=== PATIENT | female | born 1990 | race Caucasian/White ===

== ENCOUNTER 2018-11-23 10:59 | Observation (INO) | payer OTHER ==
[2018-11-23 12:50] LABS: Amphetamine,Urine NEGATIVE (NEGATIVE); Barbiturate,Urine NEGATIVE (NEGATIVE); Benzodiazepine,Urine NEGATIVE (NEGATIVE); Cocaine,Urine NEGATIVE (NEGATIVE); Methadone,Urine NEGATIVE (NEGATIVE); Opiate,Urine NEGATIVE (NEGATIVE); PCP,Urine NEGATIVE (NEGATIVE); THC,Urine POSITIVE (NEGATIVE)
[2018-11-23 14:35] VITALS: BP 145/81; PULSE 85
--- NOTE | 2018-11-23 15:06 | XRAY ---
Exam: OB biophysical profile without nonstress test from 11/23/2018. Comparison: OB ultrasound less than 14 weeks from 06/17/2018. Indication: well-being, maternal hypertension. Findings: The fetus scored 0 out of 2 points for breathing movements (less than 30 seconds of sustained breathing movements in 30 minutes of observation). The fetus scored 2 points out of 2 points for 3 or more gross body movements in 30 minutes of observation. Simultaneous limb and trunk movements are counted as a single movement. The fetus scored 2 points out of 2 points for at least one episode of motion of a limb from a position of flexion to extension and a rapid return to flexion. The fetus scored 2 points out of 2 points for qualitative amniotic fluid volume (pocket of amniotic fluid measuring at least 1 cm in perpendicular planes). The heart rate measured 131 bpm. Impression: 1. Total OB biophysical profile score is 6 points out of a maximum of 8 points. See above.
== END 2018-11-23 14:00 | disposition home or self-care (01) ==
LOC: OB 10:59
PROVIDERS: ADMIT Family Medicine; ATTEND Family Medicine
DX: O16.3 Unspecified maternal hypertension, third trimester (principal); Z3A.31 31 weeks gestation of pregnancy
CPT/HCPCS: 59025; 76819; 80307; G0378

== ENCOUNTER 2018-11-30 10:04 | Observation (INO) | payer OTHER ==
--- NOTE | 2018-11-30 11:18 | XRAY ---
Indication: Gestational hypertension. Ultrasound biophysical profile study was performed. Comparison: November 23, 2018. Again there is a single viable intrauterine with heart rate 139 BPM. Four-quadrant NANY is 20.6 cm. 2 points given for breathing, movements, tone, and qualitative amniotic fluid volume. Impression: Total biophysical profile score is now 8 out of 8.
[2018-11-30 11:53] VITALS: BP 137/68; PULSE 80
== END 2018-11-30 11:38 | disposition home or self-care (01) ==
LOC: OB 10:04 → UNDOADMOB 10:04 → UNDODISOB 11:38
PROVIDERS: ADMIT Family Medicine; ATTEND Family Medicine
DX: O13.3 Gestational [pregnancy-induced] hypertension without significant proteinuria, third trimester (principal); Z3A.32 32 weeks gestation of pregnancy
CPT/HCPCS: 59025; 76819; G0378

== ENCOUNTER 2019-01-17 17:12 | Emergency (ER) | payer OTHER ==
--- NOTE | 2019-01-17 18:04 | ERPHSYRPT ---
- History of Present Illness Time Seen by Provider: 01/17/19 17:50 Historian: patient Exam Limitations: no limitations Patient Subjective Stated Complaint: pt here lower abd pain since yesterday, vomited yesterday none today, fever 102.3 today, fever not treated. pt is 2 weeks psot ,normal vaginal delivery . dr contreras is her facility service associate Triage Nursing Assessment: pt alert, walked in ,resp easy, skin w/d/p. pt guarding abd, moaning occ, abd soft with bs, ,moves all ext well, pt still having vaginal bleeding states he jis going through 3 pads a day, no clots Physician History: Patient is 2 weeks of a spontaneous vaginal delivery. Patient is a . Patient had no complications with or delivery. Patient was delivered in [place], [place] by Dr Contreras. Patient did not require antibiotics during delivery or post- and was Group B strep negative per her history. Patient was not seen by her PHOTO TECHNOLOGIST for her new onset RLQ to generalized abdominal pain over the past day of her symptoms. Patient states she had a fever of 102.6 in the morning of 01/17/2019. Timing/Duration: yesterday Activities at Onset: none Abdominal Pain Onset Location: RLQ (yesterday; ), generalized abdomen (today her pain is generalized) Pain Radiation: periumbilical Severity of Pain-Max: moderate Severity of Pain-Current: moderate Modifying Factors: Worsens With: movement, palpation Associated Symptoms: No back, No chest pain, No diaphoresis, No diarrhea, No fever/chills, No fatigue, No headache, No heartburn, No loss of appetite, No nausea, No neck pain, No rash, No shortness of breath, No syncope, No vomiting, No weakness Previous symptoms: no prior history, no recent treatment Allergies/Adverse Reactions: No Known Drug Allergies Allergy (Verified 01/17/19 17:41) Home Medications: Iron 65 mg PO DAILY 11/23/18 [History] Nifedipine Xl 30 mg [Adalat CC 30 MG TABLET] 60 mg PO DAILY 11/23/18 [ History] Vits W-Ca,Fe,FA(<1Mg) [] 1 each PO DAILY 11/23/18 [History] Hx Tetanus, Diphtheria Vaccination/Date Given: Yes (2009) Hx Influenza Vaccination/Date Given: Yes Hx Pneumococcal Vaccination/Date Given: No Immunizations Up to Date: Yes - Review of Systems Constitutional: No Fever, No Chills, No Fatigue Eyes: No Eye Pain, No Vision Changes Ears, Nose, & Throat: No Mouth Swelling, No Throat Pain, No Throat Swelling, No Painful Swallowing Respiratory: No Cough, No Dyspnea, No Dyspnea on Exertion (HAYDEN) Cardiac: No Chest Pain, No Edema, No Palpitations, No Syncope Abdominal/Gastrointestinal: Abdominal Pain, No Nausea, No Vomiting, No Melena Genitourinary Symptoms: Vaginal Bleeding (small amounts; told nursing still absorbing three pads a day), No Dysuria, No Frequency, No Hematuria, No Flank Pain Musculoskeletal: No Back Pain, No Neck Pain, No Deformity, No Myalgias Skin: No Pruritis, No Rash Neurological: No Dizziness, No Focal Weakness, No Parasthesia Psychological: No Anxiety Endocrine: No Polyuria, No Polydipsia, No Excessive Sweating Hematologic/Lymphatic: No Easy Bleeding, No Easy Bruising All Other Systems: Reviewed and Negative - Past Medical History Pertinent Past Medical History: Yes Neurological History: No Pertinent History ENT History: No Pertinent History Cardiac History: Hypertension Respiratory History: No Pertinent History Endocrine Medical History: No Pertinent History Musculoskeletal History: No Pertinent History GI Medical History: No Pertinent History History: No Pertinent History Psycho-Social History: Bipolar Female Reproductive Disorders: No Pertinent History Other Medical History: Information given by significant other. - Past Surgical History Past Surgical History: No Neuro Surgical History: No Pertinent History Cardiac: No Pertinent History Respiratory: No Pertinent History Gastrointestinal: No Pertinent History Genitourinary: No Pertinent History Musculoskeletal: No Pertinent History Female Surgical History: No Pertinent History Other Surgical History: Information given by significant other - Social History Smoking Status: Never smoker How long have you smoked: 4 YRS. Exposure to second hand smoke: No Drug Use: none Patient Lives Alone: No - Female History Hx Last Menstrual Period: apr 18 2018 Hx Now: No - Nursing Vital Signs Nursing Vital Signs: Initial Vital Signs Temperature 98.6 F 01/17/19 17:31 Pulse Rate 96 H 01/17/19 17:31 Respiratory Rate 16 01/17/19 17:31 Blood Pressure 147/99 01/17/19 17:31 O2 Sat by Pulse Oximetry 99 01/17/19 17:31 Pain Scale Pain Intensity 7 - Physical Exam General Appearance: no apparent distress, alert Eye Exam: PERRL/EOMI, eyes nml inspection, No scleral icterus Ears, Nose, Throat Exam: normal ENT inspection, pharynx normal, moist mucous membranes, No dry mucous membranes Neck Exam: normal inspection, non-tender, supple, No full range of motion, No meningismus Respiratory Exam: normal breath sounds, lungs clear, airway intact, No chest tenderness, No respiratory distress, No accessory muscle use, No crackles/rales , No rhonchi, No wheezing Cardiovascular Exam: regular rate/rhythm, normal heart sounds, normal peripheral pulses, capillary refill <2 sec, No murmur Gastrointestinal/Abdomen Exam: soft, normal bowel sounds, tenderness, No mass, No guarding, No ecchymosis, No rebound Back Exam: normal inspection, normal range of motion, No CVA tenderness, No vertebral tenderness, No rash Extremity Exam: normal inspection, normal range of motion, pelvis stable, No calf tenderness, No hanh's sign Neurologic Exam: alert, oriented x 3, cooperative, wood boatbuilder II-XII nml as tested, normal mood/affect, sensation nml, No motor deficits Skin Exam: normal color, warm, dry, No rash, No petechiae, No jaundice, No cyanosis SpO2 Interpretation: normal SpO2: 99 O2 Delivery: Room Air Ordered Tests: Active Orders 24 hr Category Date Time Status IV Insertion STAT Care 01/17/19 17:58 Active NPO (ED) STAT Care 01/17/19 17:58 Active AMYLASE Stat Lab 01/17/19 18:10 Completed CBC W DIFF Stat Lab 01/17/19 18:10 Completed CMP Stat Lab 01/17/19 18:10 Completed CULTURE,URINE Stat Lab 01/17/19 18:22 Received LIPASE Stat Lab 01/17/19 18:10 Completed Lactic Acid Stat Lab 01/17/19 17:58 Completed PROTIME WITH INR Stat Lab 01/17/19 18:10 Completed PTT Stat Lab 01/17/19 18:10 Completed UA W/RFX UR CULTURE Stat Lab 01/17/19 18:22 Completed Medication Summary Discontinued Medications Generic Name Dose Route Start Last Admin Trade Name Freq PRN Reason Stop Dose Admin Cephalexin HCl 500 mg 01/17/19 21:46 01/17/19 22:05 Keflex 500 Mg PO 01/17/19 21:47 500 mg STAT ONE Administration Cephalexin HCl Confirm 01/17/19 22:04 Keflex 500 Mg Administered 01/17/19 22:05 Dose 500 mg .ROUTE .STK-MED ONE Diphenhydramine HCl 25 mg 01/17/19 17:58 01/17/19 18:32 Benadryl 50 Mg/Ml IV 01/17/19 17:59 25 mg STAT ONE Administration Diphenhydramine HCl Confirm 01/17/19 18:25 Benadryl 50 Mg/Ml Administered 01/17/19 18:26 Dose 50 mg .ROUTE .STK-MED ONE Famotidine 20 mg 01/17/19 17:58 01/17/19 18:30 Pepcid 20 Mg Vial IV 01/17/19 17:59 20 mg STAT ONE Administration Famotidine Confirm 01/17/19 18:25 Pepcid 20 Mg Vial Administered 01/17/19 18:26 Dose 20 mg IV .STK-MED ONE Sodium Chloride 1,000 mls @ 999 mls/hr 01/17/19 17:58 01/17/19 18:27 Sodium Chloride 0.9% 1000 Ml IV 01/17/19 18:58 999 mls/hr .Q1H1M STA Administration Sodium Chloride Confirm 01/17/19 18:26 Sodium Chloride 0.9% 1000 Ml Administered 01/17/19 18:27 Dose 1,000 mls @ ud .ROUTE .STK-MED ONE Ketorolac Tromethamine 30 mg 01/17/19 21:49 01/17/19 22:06 Toradol 30 Mg Injection IV 01/17/19 21:50 30 mg STAT ONE Administration Ketorolac Tromethamine Confirm 01/17/19 22:03 Toradol 30 Mg Injection Administered 01/17/19 22:04 Dose 30 mg .ROUTE .STK-MED ONE Morphine Sulfate 4 mg 01/17/19 17:58 01/17/19 18:35 Morphine Sulfate 4 Mg Inj IV 01/17/19 17:59 4 mg STAT ONE Administration Morphine Sulfate Confirm 01/17/19 18:26 Morphine Sulfate 4 Mg Inj Administered 01/17/19 18:27 Dose 4 mg .ROUTE .STK-MED ONE Lab/Rad Data: Laboratory Result Diagrams 01/17/19 18:10 01/17/19 18:10 Laboratory Results 01/17/19 01/17/19 01/17/19 Range/Units 18:22 18:10 18:10 WBC (4.0-10.5) K/mm3 RBC (4.1-5.4) M/mm3 Hgb (12.0-16.0) gm/dl Hct (35-47) % MCV (78-100) fl MCH (26-32) pg MCHC (32-36) g/dl RDW (11.5-14.0) % Plt Count (150-450) K/mm3 MPV (6-9.5) fl Gran % (36.0-66.0) % Eos # (Auto) (0-0.5) Absolute Lymphs (auto) (1.0-4.6) Absolute Monos (auto) (0.0-1.3) Lymphocytes % (24.0-44.0) % Monocytes % (0.0-12.0) % Eosinophils % (0.00-5.0) % Basophils % (0.0-0.4) % Absolute Granulocytes (1.4-6.9) Basophils # (0-0.4) PT 17.0 H (9.95-12.35) SECONDS INR 1.49 (0.8-3.0) APTT 33.8 (25.3-37.0) SECONDS Sodium 141 (137-145) mmol/L Potassium 4.3 (3.5-5.1) mmol/L Chloride 104 (98-107) mmol/L Carbon Dioxide 27 (22-30) mmol/L Anion Gap 13.9 (5-15) MEQ/L BUN 20 H (7-17) mg/dL Creatinine 1.00 (0.52-1.04) mg/dL Estimated GFR > 60.0 ML/MIN Glucose 97 (74-106) mg/dL Lactic Acid (0.4-2.0) Calcium 9.4 (8.4-10.2) mg/dL Total Bilirubin 0.80 (0.2-1.3) mg/dL AST 16 (14-36) U/L ALT 18 (0-35) U/L Alkaline Phosphatase 94 (38-126) U/L Serum Total Protein 7.6 (6.3-8.2) g/dL Albumin 3.7 (3.5-5.0) g/dL Amylase 41 (30-110) U/L Lipase 26 (23-300) U/L Urine Color FRANCISCO (YELLOW) Urine Appearance CLOUDY (CLEAR) Urine pH 5.0 (5-6) Ur Specific [place] 1.028 (1.005-1.025) Urine Protein 100 (Negative) Urine Ketones NEGATIVE (NEGATIVE) Urine Blood LARGE (0-5) Remy/ul Urine Nitrite NEGATIVE (NEGATIVE) Urine Bilirubin NEGATIVE (NEGATIVE) Urine Urobilinogen 2 (0-1) mg/dL Ur Leukocyte Esterase LARGE (NEGATIVE) Urine WBC (Auto) >100 (0-5) /HPF Urine RBC (Auto) 3-5 (0-2) /HPF U Epithel Cells (Auto) RARE (FEW) /HPF Urine Bacteria (Auto) NONE (NEGATIVE) /HPF Urine Mucus (Auto) SLIGHT (NEGATIVE) /HPF Urine Culture Reflexed YES (NO) Urine Glucose NEGATIVE (NEGATIVE) mg/dL 01/17/19 01/17/19 Range/Units 18:10 17:58 WBC 14.4 H (4.0-10.5) K/mm3 RBC 4.01 L (4.1-5.4) M/mm3 Hgb 12.1 (12.0-16.0) gm/dl Hct 37.8 (35-47) % MCV 94.3 (78-100) fl MCH 30.1 (26-32) pg MCHC 32.0 (32-36) g/dl RDW 12.8 (11.5-14.0) % Plt Count 340 (150-450) K/mm3 MPV 9.7 H (6-9.5) fl Gran % 84.0 H (36.0-66.0) % Eos # (Auto) 0.10 (0-0.5) Absolute Lymphs (auto) 1.47 (1.0-4.6) Absolute Monos (auto) 0.70 (0.0-1.3) Lymphocytes % 10.2 L (24.0-44.0) % Monocytes % 4.9 (0.0-12.0) % Eosinophils % 0.7 (0.00-5.0) % Basophils % 0.2 (0.0-0.4) % Absolute Granulocytes 12.12 H (1.4-6.9) Basophils # 0.03 (0-0.4) PT (9.95-12.35) SECONDS INR (0.8-3.0) APTT (25.3-37.0) SECONDS Sodium (137-145) mmol/L Potassium (3.5-5.1) mmol/L Chloride (98-107) mmol/L Carbon Dioxide (22-30) mmol/L Anion Gap (5-15) MEQ/L BUN (7-17) mg/dL Creatinine (0.52-1.04) mg/dL Estimated GFR ML/MIN Glucose (74-106) mg/dL Lactic Acid 1.0 (0.4-2.0) Calcium (8.4-10.2) mg/dL Total Bilirubin (0.2-1.3) mg/dL AST (14-36) U/L ALT (0-35) U/L Alkaline Phosphatase (38-126) U/L Serum Total Protein (6.3-8.2) g/dL Albumin (3.5-5.0) g/dL Amylase (30-110) U/L Lipase (23-300) U/L Urine Color (YELLOW) Urine Appearance (CLEAR) Urine pH (5-6) Ur Specific [place] (1.005-1.025) Urine Protein (Negative) Urine Ketones (NEGATIVE) Urine Blood (0-5) Remy/ul Urine Nitrite (NEGATIVE) Urine Bilirubin (NEGATIVE) Urine Urobilinogen (0-1) mg/dL Ur Leukocyte Esterase (NEGATIVE) Urine WBC (Auto) (0-5) /HPF Urine RBC (Auto) (0-2) /HPF U Epithel Cells (Auto) (FEW) /HPF Urine Bacteria (Auto) (NEGATIVE) /HPF Urine Mucus (Auto) (NEGATIVE) /HPF Urine Culture Reflexed (NO) Urine Glucose (NEGATIVE) mg/dL - Progress Progress: improved, re-examined Progress Note: 01/17/19 21:52 Patient still has generalized abdominal pain or repeat examination. Toradol 30mg IV times one will be given. 01/17/19 23:06 Pain resolved after IV Toradol. abdomen soft and nontender on repeat examination no CVA tenderness bilaterally. Patient states she's had hypertension issues since age 16, but did not have preeclampsia with his past delivery and the last 4 weeks of her her blood pressure was normal. Patient states she was on 2 blood pressure medications through her . Discussed with Dr.: Other (@21:38, spoker with Dr Meehan, PHOTO TECHNOLOGIST, covering for Dr Contreras. Dr Meehan states patient does not require any immediate imaging or inpatient evaluation and we both feel patient does not have pre- eclampsia at this time. Dr Meehan recommended patient start Motrin for pain control and we decided on Keflex for start of possible UTI ) Counseled pt/family regarding: lab results, diagnosis, need for follow-up - Departure Departure Disposition: Home Clinical Impression: Generalized abdominal pain, Lower urinary tract infection, acute, Essential hypertension Condition: Good Critical Care Time: No Referrals: SUSAN ARELLANO MD [Primary Care Provider] - Instructions: Acute Abdomen (Belly Pain), Adult (DC), Urinary Tract Infection, Adult (DC), High Blood Pressure (DC) Additional Instructions: No specific reason was found on today's evaluation for your abdominal pain. We will start youon antibiotics for a lower urinary tract infection, and it is important to follow up the urine culture with your PHOTO TECHNOLOGIST, Dr. Contreras in the next 2 days. Follow-up with Dr Contreras in the morning of 01/18/2019. Return immediately back to the emergency room if any new fever, worsening abdominal pain, localized abdominal pain, new back pain, new vomiting, or any other concerning signs or symptoms that were not present at today's emergency room visit for immediate reevaluation in the emergency department. Prescriptions: Ibuprofen 600 mg PO Q6H PRN PRN #20 tablet PRN Reason: Pain Cephalexin Mh 500 mg [Keflex 500 mg] 500 mg PO TID #15 capsule
[2019-01-17 18:21] LABS: Absolute Neutrophil Ct (ANC) 12.12 (1.4-6.9); BASOPHIL % 0.2 % (0.0-0.4); Basophil (Absolute #) 0.03 (0-0.4); Eosinophil % 0.7 % (0.00-5.0); Hematocrit 37.8 % (35-47); Hemoglobin 12.1 gm/dl (12.0-16.0); Lymphocyte (Absolute #) 1.47 (1.0-4.6); Lymphocytes % 10.2 % (24.0-44.0); Mean Cell Volume 94.3 fl (78-100); Mean Platelet Volume 9.7 fl (6-9.5); Monocytes % 4.9 % (0.0-12.0); Platelet Count 340 K/mm3 (150-450); Red Blood Count 4.01 M/mm3 (4.1-5.4); Red Cell Distribution Width 12.8 % (11.5-14.0); White Blood Count 14.4 K/mm3 (4.0-10.5)
[2019-01-17 18:24] LABS: Mean Corpuscular Hemoglobin 30.1 pg (26-32)
[2019-01-17] MEDS ORDERED: Pepcid 20 MG VIAL IV ONE (18:25)
[2019-01-17] MEDS ORDERED: BENADRYL 50 MG/ML ONE (18:25)
[2019-01-17] MEDS ORDERED: MORPHINE SULFATE 4 MG INJ ONE (18:26)
[2019-01-17] MEDS ORDERED: Sodium Chloride 0.9% 1000 ML 1,000 ML ONE (18:26)
[2019-01-17] MEDS: Sodium Chloride 0.9% 1000 ML 1,000 ML IV STA (18:27)
[2019-01-17 18:28] LABS: INR 1.49 (0.8-3.0)
[2019-01-17] MEDS: Pepcid 20 MG VIAL IV ONE (18:30)
[2019-01-17 18:31] LABS: PTT 33.8 SECONDS (25.3-37.0)
[2019-01-17] MEDS: BENADRYL 50 MG/ML IV ONE (18:32)
[2019-01-17 18:34] LABS: ALBUMIN 3.7 g/dL (3.5-5.0); ALKALINE PHOSPHATASE 94 U/L (38-126); AMYLASE 41 U/L (30-110); ANION GAP 13.9 MEQ/L (5-15); BLOOD UREA NITROGEN 20 mg/dL (7-17); CHLORIDE 104 mmol/L (98-107); Calcium 9.4 mg/dL (8.4-10.2); Carbon Dioxide 27 mmol/L (22-30); Glucose 97 mg/dL (74-106); LIPASE 26 U/L (23-300); Potassium 4.3 mmol/L (3.5-5.1); SGOT/AST 16 U/L (14-36); SGPT/ALT 18 U/L (0-35); SODIUM 141 mmol/L (137-145); Total Protein 7.6 g/dL (6.3-8.2)
[2019-01-17] MEDS: MORPHINE SULFATE 4 MG INJ IV ONE (18:35)
[2019-01-17 18:53] LABS: Appearance CLOUDY (CLEAR); Bilirubin NEGATIVE (NEGATIVE); Blood LARGE Ery/ul (0-5); Epithelial Cells RARE /HPF (FEW); Glucose NEGATIVE (NEGATIVE); Ketones NEGATIVE (NEGATIVE); Leukocyte Esterase LARGE (NEGATIVE); Mucus SLIGHT /HPF (NEGATIVE); Nitrite NEGATIVE (NEGATIVE); Protein,Urine Dip 100 (Negative); Specific Gravity 1.028 (1.005-1.025); Urobilinogen 2 mg/dL (0-1); WBC >100 /HPF (0-5)
[2019-01-17] MEDS ORDERED: TORAdol 30 mg Injection ONE (22:03)
[2019-01-17] MEDS ORDERED: KEFLEX 500 MG ONE (22:04)
[2019-01-17] MEDS: KEFLEX 500 MG PO ONE (22:05)
[2019-01-17] MEDS: TORAdol 30 mg Injection IV ONE (22:06)
[2019-01-17 23:20] VITALS: BP 128/76; PULSE 79; O2SAT 98
== END 2019-01-17 23:22 | disposition home or self-care (01) ==
LOC: ED 17:12
DX: R10.84 Generalized abdominal pain (principal); R10.33 Periumbilical pain; O86.20 Urinary tract infection following delivery, unspecified; I10 Essential (primary) hypertension
CPT/HCPCS: 36000; 36415; 80053; 81001; 82150; 83605; 83690; 85025; 85610; 85730; 87086; 96374; 96375; 99284; J1200; J1885; J2270; A9270-GY

== ENCOUNTER 2021-08-18 09:25 | Inpatient (IN) | payer MEDICAID ==
[2021-08-18] MEDS ORDERED: XYLOCAINE 1% HCL 20 ML MDV IJ PRN (17:58)
[2021-08-18] MEDS ORDERED: Cervidil 10 MG VAG SCH (18:00)
[2021-08-18] MEDS ORDERED: BRETHINE 1 MG/ML SQ PRN (18:00)
[2021-08-18 18:55] LABS: Absolute Neutrophil Ct (ANC) 5.94 x10^3/uL (1.4-6.9); Basophil (Absolute #) 0.06 x10^3/uL (0-0.4); Eosinophil % 1.8 % (0.00-5.0); Eosinophil (Absolute #) 0.17 x10^3/uL (0-0.5); Hematocrit 37.6 % (35-47); Hemoglobin 12.5 g/dL (12.0-16.0); Lymphocyte (Absolute #) 2.39 x10^3/uL (1.0-4.6); Lymphocytes % 25.5 % (24.0-44.0); Mean Cell Volume 93.1 fL (78-100); Mean Corpuscular Hemoglobin 30.9 pg (26-32); Mean Corpuscular Hgb Concent. 33.2 g/dL (32-36); Mean Platelet Volume 10.4 fL (7.5-11.0); Monocyte (Absolute #) 0.73 x10^3/uL (0.0-1.3); Monocytes % 7.8 % (0.0-12.0); Neutrophil % 63.6 % (36.0-66.0); Platelet Count 194 x10^3/uL (150-450); Red Blood Count 4.04 x10^6/uL (4.1-5.4); White Blood Count 9.4 x10^3/uL (4.0-10.5)
[2021-08-18 19:23] LABS: Amphetamine,Urine POSITIVE (NEGATIVE); Barbiturate,Urine NEGATIVE (NEGATIVE); Benzodiazepine,Urine NEGATIVE (NEGATIVE); Cocaine,Urine NEGATIVE (NEGATIVE); Methadone,Urine NEGATIVE (NEGATIVE); Opiate,Urine NEGATIVE (NEGATIVE); PCP,Urine NEGATIVE (NEGATIVE); THC,Urine POSITIVE (NEGATIVE)
[2021-08-18 19:46] LABS: ABO TYPING A; Antibody Screen NEGATIVE (NEGATIVE); RH TYPING POSITIVE
[2021-08-19] MEDS ORDERED: TRANDATE 20 MG/4 ML SYRINGE IV ONE (02:39)
[2021-08-19] MEDS ORDERED: STADOL 2 MG IV ONE ×2 (02:42→07:00)
[2021-08-19] MEDS ORDERED: Ephedrine Sulfate 50 MG/ML IV PRN (07:00)
[2021-08-19] MEDS ORDERED: Lactated Ringers 1,000 ML IV ONE (07:00)
[2021-08-19] MEDS ORDERED: FENTANYL 2 MCG-BUPIV 0.125%-NS 250 ML Epidur 250 ML EPIDURAL SCH (07:05)
[2021-08-19] MEDS ORDERED: PITOCIN 30 UNITS/ LR 500 ML 30 UNITS/500 ML PLAST..BAG IV SCH (08:00)
[2021-08-19] MEDS: Trandate 100 MG PO SCH ×2 (08:20→21:46)
[2021-08-19] MEDS: Lactated Ringers 1,000 ML IV SCH (08:23)
[2021-08-19] MEDS ORDERED: Xylocaine-Mpf 2% 5 Ml Vial ONE (13:57)
[2021-08-19] MEDS ORDERED: TUCKS TP PRN (15:03)
[2021-08-19] MEDS ORDERED: LANSINOH 40 GM TOP PRN (15:03)
[2021-08-19] MEDS ORDERED: Dermoplast Spray TP PRN (15:03)
[2021-08-19] MEDS: MOTRIN 400 MG PO PRN ×2 (16:30→21:45)
[2021-08-19] MEDS: TYLENOL EXTRA STRENGTH 500 MG PO PRN (20:38)
[2021-08-19] MEDS: Docusate Sodium 100 MG PO SCH (21:45)
[2021-08-20] MEDS: TYLENOL EXTRA STRENGTH 500 MG PO PRN ×2 (04:54→08:08)
[2021-08-20 05:10] LABS: Absolute Neutrophil Ct (ANC) 6.64 x10^3/uL (1.4-6.9); Basophil (Absolute #) 0.04 x10^3/uL (0-0.4); Eosinophil % 1.7 % (0.00-5.0); Eosinophil (Absolute #) 0.18 x10^3/uL (0-0.5); Hemoglobin 11.9 g/dL (12.0-16.0); Lymphocyte (Absolute #) 2.64 x10^3/uL (1.0-4.6); Lymphocytes % 25.6 % (24.0-44.0); Mean Cell Volume 92.5 fL (78-100); Mean Corpuscular Hemoglobin 30.6 pg (26-32); Mean Corpuscular Hgb Concent. 33.1 g/dL (32-36); Mean Platelet Volume 10.4 fL (7.5-11.0); Monocyte (Absolute #) 0.76 x10^3/uL (0.0-1.3); Monocytes % 7.4 % (0.0-12.0); Neutrophil % 64.3 % (36.0-66.0); Platelet Count 183 x10^3/uL (150-450); Red Blood Count 3.89 x10^6/uL (4.1-5.4); Red Cell Distribution Width 13.2 % (11.5-14.0); White Blood Count 10.3 x10^3/uL (4.0-10.5)
[2021-08-20] MEDS: Trandate 100 MG PO SCH ×2 (05:48→21:56)
[2021-08-20] MEDS ORDERED: Adacel Vial IM ONE (09:00)
[2021-08-20] MEDS: FERREX 150 PO SCH (10:25)
[2021-08-20] MEDS: Adalat CC 30 MG TABLET PO SCH ×4 (10:25→22:51)
[2021-08-20] MEDS: Docusate Sodium 100 MG PO SCH ×2 (10:25→21:46)
[2021-08-20] MEDS: MOTRIN 400 MG PO PRN ×2 (11:14→22:26)
[2021-08-20 12:18] LABS: HBsAg Screen Negative (Negative)
[2021-08-20 17:17] LABS: Absolute Neutrophil Ct (ANC) 6.42 x10^3/uL (1.4-6.9); Basophil (Absolute #) 0.07 x10^3/uL (0-0.4); Eosinophil % 1.7 % (0.00-5.0); Eosinophil (Absolute #) 0.17 x10^3/uL (0-0.5); Hematocrit 36.3 % (35-47); Hemoglobin 11.9 g/dL (12.0-16.0); Lymphocyte (Absolute #) 2.66 x10^3/uL (1.0-4.6); Lymphocytes % 26.8 % (24.0-44.0); Mean Cell Volume 94.5 fL (78-100); Mean Corpuscular Hgb Concent. 32.8 g/dL (32-36); Mean Platelet Volume 10.2 fL (7.5-11.0); Monocyte (Absolute #) 0.54 x10^3/uL (0.0-1.3); Monocytes % 5.4 % (0.0-12.0); Neutrophil % 64.7 % (36.0-66.0); Platelet Count 193 x10^3/uL (150-450); Red Blood Count 3.84 x10^6/uL (4.1-5.4); White Blood Count 9.9 x10^3/uL (4.0-10.5)
[2021-08-20 17:32] LABS: ALBUMIN 3.3 g/dL (3.5-5.0); ALKALINE PHOSPHATASE 131 U/L (38-126); ANION GAP 10.9 MEQ/L (5-15); BLOOD UREA NITROGEN 13 mg/dL (7-17); CHLORIDE 107 mmol/L (98-107); Calcium 9.2 mg/dL (8.4-10.2); Carbon Dioxide 23 mmol/L (22-30); Creatinine 1 0.69 mg/dL (0.52-1.04); EST GLOMERULAR FILTRATION RATE > 60.0 ML/MIN; Glucose 110 mg/dL (74-106); Potassium 4.1 mmol/L (3.5-5.1); SGOT/AST 26 U/L (14-36); SGPT/ALT 19 U/L (0-35); SODIUM 137 mmol/L (137-145); Total Protein 6.3 g/dL (6.3-8.2)
[2021-08-20 17:54] LABS: Creatinine, Urine Random 33.9 mg/dl; Protein Creatinine Ratio, Ran. 4.19 mg/mg (0.0-0.15)
[2021-08-20] MEDS: Lactated Ringers 1,000 ML IV SCH (19:23)
[2021-08-20] MEDS: Magnesium Sulfate 40 Gm/1000 Ml H2O Premix*** 1,000 ML IV SCH (19:23)
[2021-08-20 20:07] LABS: INR 0.87 (0.8-3.0); PROTIME 9.3 SECONDS (9.4-12.5); PTT 24.9 SECONDS (25.1-36.5)
[2021-08-20] MEDS ORDERED: TRANDATE 20 MG/4 ML SYRINGE IV ONE ×2 (20:27→20:29)
[2021-08-20] MEDS ORDERED: APRESOLINE 20 MG/ML INJ IV ONE (20:30)
[2021-08-20 22:15] LABS: Appearance CLEAR (CLEAR); Bilirubin NEGATIVE (NEGATIVE); Glucose NEGATIVE (NEGATIVE); Ketones NEGATIVE (NEGATIVE); Protein,Urine Dip TRACE (Negative); RBC LARGE Ery/ul (0-5); Specific Gravity 1.025 (1.005-1.025)
[2021-08-20 22:16] LABS: Dipstick done @ ? MAIN LAB; Nitrite NEGATIVE (NEGATIVE); Urobilinogen 0.2 mg/dL (0-1)
[2021-08-20 22:18] LABS: Creatinine, Urine Random 23.8 mg/dl; Protein Creatinine Ratio, Ran. 1.81 mg/mg (0.0-0.15)
[2021-08-20 22:22] LABS: Epithelial Cells RARE /HPF (FEW); Mucus SLIGHT /HPF (NEGATIVE)
[2021-08-20 22:23] LABS: RBC >101 /HPF (0-2); Urine Cultured Indicated? YES
[2021-08-21] MEDS ORDERED: TRANDATE 20 MG/4 ML SYRINGE IV ONE (01:17)
[2021-08-21] MEDS: Lactated Ringers 1,000 ML IV SCH ×2 (02:27→11:34)
[2021-08-21] MEDS: TYLENOL EXTRA STRENGTH 500 MG PO PRN ×3 (04:36→17:40)
[2021-08-21] MEDS ORDERED: Trandate 100 MG PO SCH ×4 (07:30→22:00)
[2021-08-21] MEDS ORDERED: Trandate 100 MG PO ONE ×2 (07:40→16:25)
[2021-08-21] MEDS ORDERED: Lasix 20 MG/2 ML IV ONE (07:41)
[2021-08-21] MEDS: FERREX 150 PO SCH (09:44)
[2021-08-21] MEDS: Docusate Sodium 100 MG PO SCH ×2 (10:08→23:07)
[2021-08-21] MEDS: Adalat CC 30 MG TABLET PO SCH ×2 (10:14→22:12)
[2021-08-21] MEDS: Magnesium Sulfate 40 Gm/1000 Ml H2O Premix*** 1,000 ML IV SCH (11:34)
[2021-08-21] MEDS: MOTRIN 400 MG PO PRN (13:10)
[2021-08-21] MEDS ORDERED: APRESOLINE 20 MG/ML INJ ONE ×2 (21:00→21:32)
[2021-08-21] MEDS ORDERED: APRESOLINE 20 MG/ML INJ IV ONE ×2 (21:00→21:32)
[2021-08-21] MEDS: Ambien 10 MG PO PRN (22:55)
[2021-08-22] MEDS: Lactated Ringers 1,000 ML IV SCH ×4 (05:56→06:50)
[2021-08-22] MEDS ORDERED: AMMONIA AROMATIC IH ONE (06:04)
[2021-08-22] MEDS ORDERED: APRESOLINE 20 MG/ML INJ IV ONE ×2 (06:07→18:25)
[2021-08-22] MEDS ORDERED: APRESOLINE 20 MG/ML INJ IV PRN (06:25)
[2021-08-22] MEDS: PITOCIN 30 UNITS/ LR 500 ML 30 UNITS/500 ML PLAST..BAG IV SCH ×2 (06:47→06:49)
[2021-08-22] MEDS: Lasix 20 MG/2 ML IV SCH ×2 (08:19→18:49)
[2021-08-22] MEDS: Trandate 100 MG PO SCH ×3 (08:30→20:06)
[2021-08-22 09:02] LABS: Hematocrit 42.7 % (35-47); Hemoglobin 14.1 g/dL (12.0-16.0); Mean Cell Volume 93.2 fL (78-100); Mean Corpuscular Hemoglobin 30.8 pg (26-32); Mean Platelet Volume 9.9 fL (7.5-11.0); Platelet Count 248 x10^3/uL (150-450); Red Blood Count 4.58 x10^6/uL (4.1-5.4); Red Cell Distribution Width 13.1 % (11.5-14.0); White Blood Count 10.5 x10^3/uL (4.0-10.5)
[2021-08-22] MEDS: FERREX 150 PO SCH (09:22)
[2021-08-22] MEDS: ZOLOFT 50 MG TABLET PO SCH (09:22)
[2021-08-22] MEDS: Docusate Sodium 100 MG PO SCH ×2 (09:22→21:17)
[2021-08-22] MEDS ORDERED: ROCEPHIN 2 Gm-D5w 50ML BAG** 2 G/50 ML IVPB IV SCH (10:00)
[2021-08-22] MEDS: Adalat CC 30 MG TABLET PO SCH ×2 (10:11→21:08)
[2021-08-22] MEDS: ATARAX 25 MG PO PRN ×2 (12:22→22:12)
[2021-08-22 13:33] LABS: ALKALINE PHOSPHATASE 130 U/L (38-126); ANION GAP 14.5 MEQ/L (5-15); BLOOD UREA NITROGEN 11 mg/dL (7-17); CHLORIDE 105 mmol/L (98-107); Carbon Dioxide 22 mmol/L (22-30); Creatinine 1 0.68 mg/dL (0.52-1.04); EST GLOMERULAR FILTRATION RATE > 60.0 ML/MIN; Glucose 102 mg/dL (74-106); SGOT/AST 24 U/L (14-36); SGPT/ALT 22 U/L (0-35); SODIUM 138 mmol/L (137-145); Total Protein 7.4 g/dL (6.3-8.2)
[2021-08-22] MEDS: TYLENOL EXTRA STRENGTH 500 MG PO PRN (15:51)
[2021-08-22] MEDS ORDERED: APRESOLINE 20 MG/ML INJ ONE (18:18)
[2021-08-22] MEDS ORDERED: CLONIDINE 0.1 MG TABLET PO ONE (18:29)
[2021-08-22 21:12] VITALS: O2SAT 98
[2021-08-22] MEDS ORDERED: Adalat CC 30 MG TABLET PO SCH (22:00)
[2021-08-22] MEDS ORDERED: Adalat CC 30 MG TABLET PO ONE (22:09)
[2021-08-22] MEDS: Ambien 10 MG PO PRN (22:31)
[2021-08-23] MEDS ORDERED: APRESOLINE 20 MG/ML INJ IV PRN (03:50)
[2021-08-23] MEDS: APRESOLINE 20 MG/ML INJ IV PRN ×2 (06:29→15:29)
[2021-08-23] MEDS ORDERED: Macrobid 100MG Capsule PO SCH (08:00)
[2021-08-23] MEDS: Trandate 100 MG PO SCH ×2 (08:13→14:06)
[2021-08-23] MEDS ORDERED: Adalat CC 30 MG TABLET PO SCH ×2 (10:00→22:00)
[2021-08-23] MEDS: ATARAX 25 MG PO PRN (10:11)
[2021-08-23] MEDS: ZOLOFT 50 MG TABLET PO SCH (10:12)
[2021-08-23] MEDS: Lasix 20 MG/2 ML IV SCH (10:12)
[2021-08-23] MEDS: Docusate Sodium 100 MG PO SCH (10:12)
[2021-08-23] MEDS: FERREX 150 PO SCH (10:12)
--- NOTE | 2021-08-23 13:48 | PCM.DS ---
Discharge Summary Date of Admission: 08/19/21 09:25 Admitting Physician: SUSAN ARELLANO Consults: Consults on Case 08/19/21 07:00 Notify Anesthesia Provider PRN 08/19/21 14:17 Navigation ONCE 08/19/21 15:03 Notify Physician ROUTINE 08/20/21 18:48 Notify Physician ROUTINE Primary Care Provider: SUSAN ARELLANO Allergies Allergies No Known Drug Allergies Allergy (Verified 06/28/21 14:56) Hospital Summary - Hospital Course Hospital Course: patient admitted for induction secondary to chronic hypertension, on labetalol during . has uncomplicated , significant htn difficult to control , felt to have reasonable control and patient insists to go home and will monitor her bp, feels stress will be lessened by going home and improved control. she was well controlled during on labetalol - Vitals & Intake/Output Vital Signs: Vital Signs Temperature 98.2 F 08/23/21 10:27 Pulse Rate 85 08/23/21 10:27 Respiratory Rate 18 08/23/21 10:27 Blood Pressure 150/62 08/23/21 10:27 O2 Sat by Pulse Oximetry 98 08/22/21 20:00 Intake & Output: Intake & Output 08/21/21 08/22/21 08/23/21 08/24/21 11:59 11:59 11:59 11:59 Intake Total 5850 2950 900 Output Total 7565 1250 400 Balance -1715 1700 500 - Lab Result Diagrams: 08/22/21 08:59 08/22/21 08:59 Lab Results-Last 24 Hrs: Lab Results-Last 24 Hours 08/22/21 08/22/21 08/22/21 Range/Units 08:59 08:59 08:59 Sodium 138 (137-145) mmol/L Potassium 4.0 (3.5-5.1) mmol/L Chloride 105 (98-107) mmol/L Carbon Dioxide 22 (22-30) mmol/L Anion Gap 14.5 (5-15) MEQ/L BUN 11 (7-17) mg/dL Creatinine 0.68 (0.52-1.04) mg/dL Estimated GFR > 60.0 ML/MIN Glucose 102 (74-106) mg/dL Calcium 10.0 (8.4-10.2) mg/dL Total Bilirubin 0.60 (0.2-1.3) mg/dL AST 24 (14-36) U/L ALT 22 (0-35) U/L Alkaline Phosphatase 130 H (38-126) U/L Serum Total Protein 7.4 (6.3-8.2) g/dL Albumin 4.0 (3.5-5.0) g/dL Free T4 0.72 L (0.76-1.46) ng/dL TSH 3rd Generation 1.990 (0.47-4.68) mIU/L Micro Results-Entire Visit: Microbiology 08/20/21 22:07 Urine Culture - Final Urine, Void Escherichia Coli - Procedures and Test Procedures and Tests throughout Hospitalization: Therapy Orders & Screens 08/19/21 13:13 Standby ROUTINE Comment: Diagnosis: Gest. HTN Discharge Exam General Appearance: no apparent distress, obese Neurologic Exam: alert, oriented x 3 Respiratory Exam: normal breath sounds, lungs clear, No respiratory distress Cardiovascular Exam: regular rate/rhythm, normal heart sounds Gastrointestinal/Abdomen Exam: soft, No tenderness, No mass Extremity Exam: normal inspection, normal range of motion Skin Exam: normal color, warm, dry Final Diagnosis/Problem List - Final Discharge Diagnosis/Problem (1) Vaginal delivery Current Visit: Yes Status: Acute Code(s): O80 - ENCOUNTER FOR FULL-TERM UNCOMPLICATED DELIVERY (2) Essential hypertension Current Visit: No Status: Acute Code(s): I10 - ESSENTIAL (PRIMARY) HYPERTENSION - Discharge Disposition: Home, Self-Care Condition: Stable Prescriptions: New Nitrofurantoin Macro 100 mg [Macrobid 100MG Capsule] 100 mg PO BIDWM #10 Labetalol HCl 100 mg [Trandate 100 MG] 400 mg PO TID #360 tablet Sertraline HCl 50 mg [Zoloft 50 mg Tablet] 50 mg PO DAILY #30 tab Nitrofurantoin Macro 100 mg [Macrobid 100MG Capsule] 100 mg PO BID #10 cap NIFEdipine [Nifedipine ER] 1 tab PO TID #90 tab Continue Vits W-Ca,Fe,FA(<1Mg) [] 1 each PO DAILY Discontinued Labetalol HCl 100 mg [Trandate 100 MG] 200 mg PO BID Follow up with: SUSAN ARELLANO MD [Primary Care Provider] - 1 Week
[2021-08-23 14:16] VITALS: PULSE 91
[2021-08-23 16:00] VITALS: BP 182/79
== END 2021-08-23 17:17 | disposition home or self-care (01) | DRG 807 ==
LOC: OB 09:25 → OBSVTOIN 08-19 09:25
PROVIDERS: ADMIT Family Medicine; ATTEND Family Medicine
PROC: 10E0XZZ Delivery of Products of Conception, External Approach (ICD-10-PCS; principal; 2021-08-19)
DX: O10.92 Unspecified pre-existing hypertension complicating childbirth (principal); Z37.0 Single live birth; Z3A.38 38 weeks gestation of pregnancy
CPT/HCPCS: 36410; 36415; 76942; 80053; 80307; 81015; 82570; 83735; 84156; 84439; 84443; 85025; 85027; 85610; 85730; 86850; 86900; 86901; 87077; 87086; 87186; 87340; 90472; 90715; 94799; G0378; J0360; J0595; J0696; J1940; J2590; A9270-GY